=== PATIENT | female | born 1990 ===

== ENCOUNTER 2016-10-14 16:38 | Emergency (ER) | payer SELFPAY ==
[~2016-10-14] VITALS: Wt 69.0 kg
[2016-10-14] MEDS ORDERED: METH-70 PO (19:54)
[2016-10-14] MEDS ORDERED: PRED20TA PO (19:54)
[2016-10-14] MEDS ORDERED: HYDR-902 PO (19:54)
[2016-10-14] MEDS ORDERED: IBUP800T25 PO (19:54)
--- NOTE | 2016-10-14 19:56 | ERD ---
ER Documentation Chief Complaint Date/Time DATE: 10/14/16 TIME: 19:54 Chief Complaint NON TRAUMATIC LOW BACK PAIN RADIATING TO LEG, NO DEFORMITY HPI This is a 25-year-old female who is brushing her teeth this morning when she suddenly got a sharp pain in her back across the low back right more than left. She says there is occasional radiation down the back of the right leg and buttocks. There is no loss of bowel or bladder no saddle anesthesia. The patient states that she has had the same symptoms before in the past may be a month ago or so. Atraumatic. No lifting pushing pulling injury. No abdominal pain no vomiting diarrhea or nausea. Pain is described as sharp ROS All systems reviewed and are negative except as per history of present illness. Medications Home Meds Active Scripts Prednisone* (Prednisone*) 20 Mg Tab, 60 MG PO DAILY for 5 Days, TAB Prov:VIOLET PINEDASTOLOS A. DO 10/14/16 Methocarbamol* (Robaxin*) 750 Mg Tablet, 750 MG PO TID, #20 TAB Prov:VIOLET PINEDASTMIRTAS A. DO 10/14/16 Ibuprofen* (Motrin*) 800 Mg Tab, 800 MG PO Q6H Y for PAIN AND OR ELEVATED TEMP, #30 TAB Prov:VIOLET PINEDASTMIRTAS A. DO 10/14/16 Hydrocodone/Acetaminophen ([place] 10-325 Tablet) 1 Each Tablet, 1 TAB PO Q6H Y for PAIN, #20 TAB Prov:VIOLET PINEDASTOLOS A. DO 10/14/16 PMhx/Soc Medical and Surgical Hx: pt denies Medical Hx, pt denies Surgical Hx Hx Alcohol Use: No Hx Substance Use: No Hx Tobacco Use: No Smoking Status: Never smoker FmHx Family History: No coronary disease Physical Exam Vitals Vital Signs Date Time Temp Pulse Resp B/P Pulse Ox O2 Delivery O2 Flow Rate FiO2 10/14/16 16:46 97.8 85 20 131/68 98 Physical Exam Const: Well-developed, well-nourished Head: Atraumatic, normocephalic Eyes: Normal Conjunctiva, PERRLA, EOMI, normal sclera, no nystagmus ENT: Normal External Ears, Nose and Mouth, moist mucus membranes. Neck: Full range of motion. No meningismus, no lymphadenopathy. Resp: Clear to auscultation bilaterally, no wheezing, rhonchi, rales Cardio: Regular rate and rhythm, no murmurs, S1 S2 present Abd: Soft, non tender x 4, non distended. Normal bowel sounds, no guarding or rebound, no pulsitile abdominal masses or bruits Skin: No petechiae or rashes, no ecchymosis , no maculopapular rash Back: Bilateral low back tenderness right more than left with muscle spasm right more than left with positive mild straight leg test on the right no saddle anesthesia no weakness in the legs] Ext: No cyanosis, or edema, FROM x 4, normal inspection, neurovascularly intact x 4 Neur: Awake and alert, STR 5/5 x 4, sensation intact x 4, no focal findings, cerebellum intact Psych: Normal Mood and Affect Procedures/MDM Motrin was given here. Will discharge home on Robaxin and Motrin [place] and prednisone Is musculoskeletal in origin no midline vertebral pain Departure Diagnosis: Primary Impression: Back pain Back pain location: low back pain Chronicity: acute Back pain laterality: bilateral Sciatica presence: with sciatica Sciatica laterality: sciatica of right side Qualified Code: M54.41 - Acute bilateral low back pain with right- sided sciatica Condition: Stable Patient Instructions: Back Pain W/ Sciatica Referrals: NO PRIMARY,CARE PHYSICIAN (PCP) RANJITH PINEDA DO Oct 14, 2016 19:56
[2016-10-14] MEDS ORDERED: IBUPROFEN 800 MG TAB PO ONE (20:00)
== END 2016-10-14 20:05 | disposition home or self-care (01) ==
LOC: FTE 16:38
DX: M54.41 Lumbago with sciatica, right side (principal)
CPT/HCPCS: 99284